=== PATIENT | male | born 1940 | race Caucasian/White ===

== ENCOUNTER → 2017-01-17 | Outpatient (CLI) | payer OTHER | END | disposition home or self-care (01) | LOC: PCVCCLINIC 11:30 | PROVIDERS: ATTEND Internal Medicine Cardiovascular Disease | DX: I10 Essential (primary) hypertension (principal); E78.00 Pure hypercholesterolemia, unspecified; M19.90 Unspecified osteoarthritis, unspecified site; I25.10 Atherosclerotic heart disease of native coronary artery without angina pectoris; G45.9 Transient cerebral ischemic attack, unspecified | CPT/HCPCS: 93005; G0463 ==

== ENCOUNTER → 2017-01-26 | Outpatient (CLI) | payer OTHER | END | disposition home or self-care (01) | LOC: PCVCIMAG 10:35 | PROVIDERS: ATTEND Internal Medicine Cardiovascular Disease | DX: I25.10 Atherosclerotic heart disease of native coronary artery without angina pectoris (principal); G45.9 Transient cerebral ischemic attack, unspecified; I10 Essential (primary) hypertension | CPT/HCPCS: 93306 ==

== ENCOUNTER → 2017-04-04 | Outpatient (CLI) | payer OTHER | END | disposition home or self-care (01) | LOC: PCVCCLINIC 12:16 | PROVIDERS: ATTEND Internal Medicine Cardiovascular Disease | DX: I25.10 Atherosclerotic heart disease of native coronary artery without angina pectoris (principal); I10 Essential (primary) hypertension; I65.29 Occlusion and stenosis of unspecified carotid artery; E78.00 Pure hypercholesterolemia, unspecified; R00.1 Bradycardia, unspecified; M19.90 Unspecified osteoarthritis, unspecified site; Z95.1 Presence of aortocoronary bypass graft; Z88.8 Allergy status to other drugs, medicaments and biological substances; Z79.899 Other long term (current) drug therapy; Z86.73 Personal history of transient ischemic attack (TIA), and cerebral infarction without residual deficits; Z87.891 Personal history of nicotine dependence | CPT/HCPCS: 80061; 93005; G0463 ==

== ENCOUNTER → 2017-07-30 | Outpatient (CLI) | payer OTHER ==
--- NOTE | 2017-07-30 11:00 | PCVCIMAG ---
APPROVED REPORT Exam: Stress Echocardiogram Indication: CAD s/p CABG, Hypertension, Hyperlipidemia Stress Nurse: Dolores Keller RN Status: routine Ht: 5 ft 9 in HR: 77 bpm BP: 140/80 mmHg Rhythm: NSR Medical History Medical History: CAD s/p CABG Procedure The patient underwent an Exercise Stress Test using the Chaparro Protocol. Blood pressure, heart rate, and EKG were monitored. An Echocardiogram was performed by commercial technician in four stages in quad fashion. At peak stress, four selected images were obtained and placed side by side with resting images for comparison. Stress Test Details Stress Test: Exercise stress testing was performed using a Chaparro protocol. HR Resting HR: 77 bpmMax Heart Rate (APMHR): 145 bpm Max HR Achieved: 151 bpmTarget HR (85% APMHR): 123 bpm % of APMHR: 104 HR response to stress: Normal HR response to stress BP Resting BP: 140/80 mmHg Max BP: 184/80 mmHg ECG Resting ECG: Sinus Rhythm Stress ECG: Sinus Rhythm Clinical Reason for Termination: Maximal effort Exercise duration: 9 min 12 sec Highest Stage Achieved: Stage 4: 4.2 mph at 16% grade. Exercise capacity: 10.70 METs Overall Exercise Capacity for Age: Good Pre-Stress Echo The resting Echocardiogram showed normal left ventricular contractility with an estimated Ejection Fraction of about 55-60%. Normal wall motion in all segments on baseline images. Post-Stress Echo Normal augmentation of wall motion in all segments on post stress images. Clinical No clinical or ECG evidence for ischemia. Conclusion Clinical Response: Non-ischemic Exercise Capacity: Average Stress ECG Response: Non-ischemic Stress Echo Images: Non-ischemic The left ventricle is normal in size and wall thickness in both the rest and stress images. <Conclusion> The left ventricle is normal in size and wall thickness in both the rest and stress images.
--- NOTE | 2017-07-30 11:06 | PCVCIMAG ---
EXAM: BILATERAL CAROTID DUPLEX INDICATION: Carotid Occlusive Disease. FINDINGS: Doppler Measurements (centimeters per second): RIGHT: Peak CCA-61, Peak ECA-98, Diastolic ICA-28, Peak ICA-104, ICA/CCA Ratio-1.7. LEFT: Peak CCA-82, Peak ECA-205, Diastolic ICA-25, Peak ICA-134, ICA/CCA Ratio-1.6. RIGHT CAROTID: The carotid bulb has moderate plaque. The proximal internal carotid artery shows <40% stenosis. The common carotid artery shows no significant stenosis. The external carotid artery shows no significant stenosis. LEFT CAROTID: The carotid bulb has mild plaque. The proximal internal carotid artery shows 40-50% stenosis. The common carotid artery shows no significant stenosis. The external carotid artery shows 60% stenosis. Antegrade flow in both vertebral arteries. IMPRESSION: <40% stenosis of the right internal carotid artery with moderate plaque. 40-50% stenosis of the left internal carotid artery with mild plaque. LOC:[place] [id number]
== END | disposition home or self-care (01) ==
LOC: PCVCIMAG 09:57
PROVIDERS: ATTEND Internal Medicine Cardiovascular Disease
DX: I65.23 Occlusion and stenosis of bilateral carotid arteries (principal); I25.10 Atherosclerotic heart disease of native coronary artery without angina pectoris; I10 Essential (primary) hypertension; E78.00 Pure hypercholesterolemia, unspecified; Z95.1 Presence of aortocoronary bypass graft; Z87.891 Personal history of nicotine dependence; Z86.73 Personal history of transient ischemic attack (TIA), and cerebral infarction without residual deficits
CPT/HCPCS: 93325; 93351; 93880

== ENCOUNTER → 2018-04-05 | Outpatient (CLI) | payer OTHER | END | disposition home or self-care (01) | LOC: PCVCCLINIC 11:29 | DX: I25.10 Atherosclerotic heart disease of native coronary artery without angina pectoris (principal); I77.9 Disorder of arteries and arterioles, unspecified; R09.89 Other specified symptoms and signs involving the circulatory and respiratory systems; G45.8 Other transient cerebral ischemic attacks and related syndromes; E78.00 Pure hypercholesterolemia, unspecified; I10 Essential (primary) hypertension; Z78.9 Other specified health status; Z88.8 Allergy status to other drugs, medicaments and biological substances; Z79.82 Long term (current) use of aspirin; Z87.891 Personal history of nicotine dependence | CPT/HCPCS: 80061; 93005; G0463 ==

== ENCOUNTER → 2018-05-16 | Outpatient (CLI) | payer OTHER | END | disposition home or self-care (01) | LOC: PCVCIMAG 10:29 | DX: I25.10 Atherosclerotic heart disease of native coronary artery without angina pectoris (principal); G45.9 Transient cerebral ischemic attack, unspecified; E78.5 Hyperlipidemia, unspecified; I10 Essential (primary) hypertension; Z95.5 Presence of coronary angioplasty implant and graft | CPT/HCPCS: 93325; 93351 ==

== ENCOUNTER → 2018-10-31 | Outpatient (CLI) | payer OTHER | END | disposition home or self-care (01) | LOC: PCVCIMAG 13:06 | PROVIDERS: ATTEND Internal Medicine Cardiovascular Disease | DX: I65.23 Occlusion and stenosis of bilateral carotid arteries (principal); I25.10 Atherosclerotic heart disease of native coronary artery without angina pectoris; I10 Essential (primary) hypertension; R09.89 Other specified symptoms and signs involving the circulatory and respiratory systems; I77.9 Disorder of arteries and arterioles, unspecified; E78.00 Pure hypercholesterolemia, unspecified; Z78.9 Other specified health status; Z87.891 Personal history of nicotine dependence; Z79.82 Long term (current) use of aspirin | CPT/HCPCS: 93880 ==

== ENCOUNTER → 2019-07-30 | Outpatient (CLI) | payer OTHER | END | disposition home or self-care (01) | LOC: PCVCCLINIC 08:50 | PROVIDERS: ATTEND Internal Medicine Cardiovascular Disease | DX: I25.10 Atherosclerotic heart disease of native coronary artery without angina pectoris (principal); E78.00 Pure hypercholesterolemia, unspecified; G45.9 Transient cerebral ischemic attack, unspecified; Z90.49 Acquired absence of other specified parts of digestive tract; Z82.49 Family history of ischemic heart disease and other diseases of the circulatory system; Z80.9 Family history of malignant neoplasm, unspecified; Z87.891 Personal history of nicotine dependence; Z88.8 Allergy status to other drugs, medicaments and biological substances; Z79.84 Long term (current) use of oral hypoglycemic drugs; Z79.82 Long term (current) use of aspirin; Z79.899 Other long term (current) drug therapy | CPT/HCPCS: 36415; 80061; 93005; G0463 ==

== ENCOUNTER → 2019-08-06 | Outpatient (CLI) | payer OTHER ==
--- NOTE | 2019-08-06 14:32 | PCVCIMAG ---
APPROVED REPORT Study performed: 08/06/2019 10:13:34 Exam: Stress Echocardiogram Indication: CAD s/p CABG Patient Location: Echo lab Stress Nurse: Isabella Cole RN Status: routine Ht: 5 ft 9 in HR: 86 bpm BP: 150/84 mmHg Rhythm: NSR Procedure The patient underwent an Exercise Stress Test using the Chaparro Protocol. Blood pressure, heart rate, and EKG were monitored. An Echocardiogram was performed by tool and die technician in four stages in quad fashion. At peak stress, four selected images were obtained and placed side by side with resting images for comparison. Stress Test Details Stress Test: Exercise stress testing was performed using a Chaparro protocol. HR Resting HR: 86 bpmMax Heart Rate (APMHR): 143 bpm Max HR Achieved: 153 bpmTarget HR (85% APMHR): 121 bpm % of APMHR: 106 Recovery HR: 103 bpm HR response to stress: Normal HR response to stress BP Resting BP: 150/84 mmHg Max BP: 190/78 mmHg Recovery BP: 172/88 mmHg BP response to stress: Normal blood pressure response to stress. ECG Resting ECG: Sinus Rhythm Stress ECG: Sinus Rhythm ST Change: Ischemic inferior and lateral ST changes Maximum ST Deviation: -3 mm Arrhythmia: None Recovery ECG: Sinus Rhythm Recovery ST Change: inferior and lateral ST depression and T wave inversion Recovery Arrhythmia: None Clinical Reason for Termination: Maximal effort Stress Symptoms: Dyspnea Exercise duration: 10 min 3 sec Highest Stage Achieved: Stage 4: 4.2 mph at 16% grade. Exercise capacity: 13.4 METs Overall Exercise Capacity for Age: Excellent Scale: Active Angina Score: None Stress ECG Conclusion Klein Treadmill Score is 25.0 which is Low risk. Pre-Stress Echo The resting Echocardiogram showed normal left ventricular contractility with an estimated Ejection Fraction of about 50-55%. The resting echocardiogram demonstrated normal wall motion in all wall segments. Post-Stress Echo The stress Echocardiogram showed normal left ventricular contractility with an estimated Ejection Fraction of about 60-65%. Compared to rest, there were no stress-induced wall motion abnormalities. Clinical No clinical evidence for ischemia. Conclusion Clinical Response: Non-ischemic Exercise Capacity: Superior Stress ECG Response: Ischemic- likely false positive Stress Echo Images: Non-ischemic EKG ST changes inferior and laterally consistent with prior stress testing and likely false positive due to normal echocardiographic images and normal clinical response. The left ventricle is normal in size and wall thickness in both the rest and stress images. Mild mitral regurgitation. Trace tricuspid and pulmonic regurgitaiton. Normal aortic valve, no stenosis or regurgitation. Other Information Study Quality: Adequate <Conclusion> EKG ST changes inferior and laterally consistent with prior stress testing and likely false positive due to normal echocardiographic images and normal clinical response. The left ventricle is normal in size and wall thickness in both the rest and stress images. Mild mitral regurgitation. Trace tricuspid and pulmonic regurgitaiton. Normal aortic valve, no stenosis or regurgitation.
== END | disposition home or self-care (01) ==
LOC: PCVCIMAG 10:44
PROVIDERS: ATTEND Internal Medicine Cardiovascular Disease
DX: I34.0 Nonrheumatic mitral (valve) insufficiency (principal); I25.10 Atherosclerotic heart disease of native coronary artery without angina pectoris; I10 Essential (primary) hypertension; E78.00 Pure hypercholesterolemia, unspecified; G45.9 Transient cerebral ischemic attack, unspecified; M19.90 Unspecified osteoarthritis, unspecified site; Z86.79 Personal history of other diseases of the circulatory system
CPT/HCPCS: 93325; 93351